=== PATIENT | male | born 1995 | race Caucasian/White ===

== ENCOUNTER 2020-08-21 09:51 | Emergency (ER) | payer BC, OTHER ==
[~2020-08-21] VITALS: Ht 182.9 cm; Wt 97.7 kg
[2020-08-21 10:04] VITALS: BP 151/93
== END 2020-08-21 11:00 | disposition home or self-care (01) ==
LOC: ER 09:52
DX: S63.282A Dislocation of proximal interphalangeal joint of right middle finger, initial encounter (principal); Z88.8 Allergy status to other drugs, medicaments and biological substances; X58.XXXA Exposure to other specified factors, initial encounter; Y93.89 Activity, other specified; Y92.89 Other specified places as the place of occurrence of the external cause; Y99.8 Other external cause status
CPT/HCPCS: 26770; 73140; 99284